=== PATIENT | male | born 1940 | race Caucasian/White ===

== ENCOUNTER → 2024-12-25 16:34 | Outpatient (REF) | payer MEDICARE, SELFPAY ==
[2024-12-25 17:57] LABS: Blood Urea Nitrogen 50 mg/dl (9-20); Calcium 10.1 mg/dl (8.4-10.2); Carbon Dioxide 27 mmol/L (22-30); Chloride 103 mmol/L (98-107); Glucose 95 mg/dl (70-99); Potassium 4.9 mmol/L (3.5-5.1); Sodium 138 mmol/L (135-145); eGFR 34.35
== END ==
LOC: REG 16:34
PROVIDERS: ATTENDING PHYSICIAN Nurse Practitioner; FAMILY PHYSICIAN Internal Medicine
DX: I50.22 Chronic systolic (congestive) heart failure (principal)
CPT/HCPCS: 36415; 80048